=== PATIENT | male | born 1965 | race African-American/Black ===

== ENCOUNTER 2016-11-16 11:11 | Emergency (ER) | payer OTHER ==
[~2016-11-16] VITALS: Ht 172.7 cm; Wt 94.8 kg
--- NOTE | 2016-11-16 11:34 | ED GI/GU/ABDOMINAL COMPLAINT ---
History of Present Illness General Chief Complaint: Abdominal Pain/Flank Pain Stated Complaint: ABD PAIN Source: patient Exam Limitations: no limitations Vital Signs & Intake/Output Vital Signs & Intake/Output Vital Signs Date Time Temp Pulse Resp B/P B/P Pulse O2 O2 Flow FiO2 Mean Ox Delivery Rate 11/16 1316 98.5 75 20 178/86 96 Room Air 11/16 1113 98.5 88 18 188/98 96 Room Air Allergies Coded Allergies: NO KNOWN ALLERGIES (10/09/12) Reconcile Medications Amlodipine Besylate 5 MG TABLET 1 TAB PO DAILY HTN (Reported) Hydromorphone HCl (Dilaudid) 2 MG TABLET 1 TAB PO BIDP PRN pain Oxycodone HCl/Acetaminophen (Oxycodone-Acetaminophen 5-325) 5 MG-325 MG TABLET 1 TAB PO 4XDP PRN PAIN (Reported) Tamsulosin HCl 0.4 MG CAP.ER.24H 1 CAP PO DAILY KIDNEY STONE (Reported) Triage Note: 51 Y/O MALE C/O PAIN "AROUND MY BELLY BUTTON" X 2 DAYS. STATES HE WAS EVAL'D AT [facility] YESTERDAY FOR SAME AND HAD NEGATIVE BLOODWORK, US AND CT SCAN. STATES HE WAS GIVEN PERCOCET PRESCRIPTION "AND TWO OTHER MEDICATIONS"; HAS BEEN TAKING SAME WITH NO RELIEF. DENIES N/V/D. DENIES FEVERS Triage Nurses Notes Reviewed? yes HPI: This patient is a 51-year-old male who presented to the emergency department today accompanied by his for violation of abdominal pain and right flank pain. The patient reported that his pain began yesterday while he was at work. He reported that the pain gets up to a 10 out of 10, sharp, and radiates across his abdomen to his right flank. Yesterday he was having pain primarily located around his umbilicus. He was brought to [facility] where he had a CT scan and ultrasound. He reports that they found a kidney stone. They do not know which side the stone was on or how big it was. They do not have the report from the initial CT scan. I sent him home with Percocet. The patient reported that this has not been helping. His reported that he was up all night. Constantly. He has not noticed any blood in the urine. He did report urinary burning. No vomiting, but positive nausea. No diarrhea or constipation. He denied any fevers, chills, chest pain, or difficulty breathing Past History Travel History Traveled to [place] past 21 day No Medical History Any Pertinent Medical History? 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 No Review of Systems Review of Systems Constitutional: Reports: no symptoms. EENTM: Reports: no symptoms. Respiratory: Reports: no symptoms. Cardiovascular: Reports: no symptoms. GI: Reports: see HPI. Genitourinary: Reports: see HPI. Musculoskeletal: Reports: see HPI. Skin: Reports: no symptoms. Neurological/Psychological: Reports: no symptoms. All Other Systems: Reviewed and Negative Physical Exam Physical Exam Gastrointestinal: normal bowel sounds, soft, no organomegaly, tenderness to palpation in the right groin region and around the umbilicus. No McBurney's point tenderness. Negative Rovsing sign. Nondistended. No rebound or guarding Comments: Well-developed well-nourished person in mild distress HEENT: Normal EENT exam, moist mucous membranes Pupils equally round and reactive to light. Back: No midline tenderness. Right-sided CVA tenderness. Antalgic gait Cardiovascular: Regular rate and rhythm with no murmurs, rubs, or gallops Respiratory: Chest nontender. No respiratory distress. Breath sounds clear to auscultation bilaterally Extremity: Normal and equal pulses Neuro: Alert oriented x3, cranial nerves II through XII grossly intact. Skin: No appreciable rash on exposed skin, skin is warm and dry. Psych: Mood and affect is normal Core Measures ACS in differential dx? Yes Severe Sepsis Present: No Septic Shock Present: No Progress Differential Diagnosis: AAA, AMI, appendicitis, biliary colic, bowel obstruction , colon cancer, cholecystitis, diverticulitis, hepatitis, ischemic bowel, inflamm bowel dis, pancreatitis, PUD/GERD, perforated viscous, pyelonephritis, ureterolithiasis, UTI/pyelo Plan of Care: Orders Procedure Date/time Status CULTURE,URINE 11/16 1151 Active URINALYSIS 11/16 1151 Complete COMPREHENSIVE METABOLIC PANEL 11/16 1151 Complete CBC WITHOUT DIFFERENTIAL 11/16 1151 Complete Laboratory Tests 11/16/16 1206: Anion Gap 10, Estimated GFR 58 L, BUN/Creatinine Ratio 7.7, Glucose 138 H, Calcium 9.1, Total Bilirubin 0.8, AST 42, ALT 37, Alkaline Phosphatase 69, Total Protein 7.1, Albumin 4.0, Globulin 3.1, Albumin/Globulin Ratio 1.3, CBC w Diff MAN DIFF ORDERED, RBC 5.51, MCV 80.7, MCH 26.9 L, RDW 15.1 H, MPV 9.5, Gran % 84.2 H, Lymphocytes % 9.0 L, Monocytes % 6.3, Eosinophils % 0.1, Basophils % 0.4, Absolute Granulocytes 12.3 H, Absolute Lymphocytes 1.3, Absolute Monocytes 0.9 H, Absolute Eosinophils 0, Absolute Basophils 0.1, Platelet Estimate ADEQUATE, Normocytic RBCs VERIFIED, Normochromic RBCs VERIFIED, PUBS MCHC 33.3, Urine Color YEL, Urine Clarity HAZY H, Urine pH 6.0, Ur Specific [place] 1.020, Urine Protein NEG, Urine Ketones NEG, Urine Nitrite NEG, Urine Bilirubin NEG, Urine Urobilinogen 0.2, Ur Leukocyte Esterase NEG, Ur Microscopic SEDIMENT EXAMINED, Urine RBC PACKD H, Urine WBC RARE, Ur Epithelial Cells FEW, Urine Bacteria FEW H, Urine Hemoglobin LARGE H, Urine Glucose NEG Microbiology 11/16 1205 URINE ROUT: Urine Culture - RECD Diagnostic Imaging: Viewed by Me: CT Scan. Discussed w/RAD: CT Scan. Radiology Impression: PATIENT: JOLIE ARIAS PRESENT AGE: 51 PATIENT ACCOUNT NO: [id number] : 64 LOCATION: [facility] ORDERING PHYSICIAN: ATIF SIDDIQI PA-C SERVICE DATE: 11/16/16 EXAM TYPE: CAT - CT ABD & PELVIS W/O IV CONTRAS EXAMINATION: CT ABDOMEN AND PELVIS WITHOUT CONTRAST CLINICAL INFORMATION: Evaluate for ureterolithiasis. Right flank pain. COMPARISON: None TECHNIQUE: Multidetector volumetric imaging was performed from the superior aspect of the liver through the pubic symphysis. Sagittal and coronal reformatted images were obtained on the technologist's workstation. DLP: 406 mGy-cm. FINDINGS: LUNG BASES: The visualized lung bases are unremarkable. LIVER, GALLBLADDER, AND BILIARY TREE: The liver is normal in size, shape, and attenuation. No focal hepatic lesion or biliary ductal dilatation is present. The gallbladder is unremarkable with no evidence of radiopaque gallstones, gallbladder wall thickening, or obvious pericholecystic inflammatory changes. PANCREAS: Unremarkable. SPLEEN: Unremarkable. ADRENAL GLANDS: Unremarkable. KIDNEYS AND URETERS: There is mild dilatation of the right collecting system. There is perinephric and periureteral stranding surrounding the right kidney and right ureter. There is a 2 mm calcification in the distal right ureter having the appearance of a distal ureteral calculus. No additional urinary tract calculi identified. The right kidney is otherwise unremarkable without additional stones or calcifications. The left collecting system in left kidney is normal. BLADDER: Unremarkable. GASTROINTESTINAL TRACT: Normal. ABDOMINAL WALL : No significant hernia is appreciated. LYMPH NODES: Normal. VASCULAR: Mild arterial calcification noted throughout. PELVIC VISCERA: Unremarkable. OSSEOUS STRUCTURES: Mild degenerative changes and bridging osteophytes about the sacroiliac joints indicative of mild arthrosis. Mild spondylosis of lumbar sacral spine. IMPRESSION: Right distal ureteral calculus resulting in mild\\E\\ partial obstruction of the right collecting system. Mild calcific atherosclerotic disease. Degenerative changes in sacroiliac joints and lumbar sacral spine. DICTATED BY: KENN MONTEJO MD DATE/TIME DICTATED:11/16/161312 ANTHROPOLOGY PROFESSOR:MANDY DATE/TIME TRANSCRIBED:11/16/161312 CONFIDENTIAL, DO NOT COPY WITHOUT APPROPRIATE AUTHORIZATION. <Electronically signed in Other Vendor System> SIGNED BY: KENN MONTEJO MD 11/16/16 7465 Initial ED EKG: none Comments: 11/16/2016 2:00:13 PM: I spoke to on-call urologist, Dr. Lopez. He reported that there is a very high likelihood that this 2 mm kidney stone now passed on its own. He is suggesting sending this patient home with a few tablets of Dilaudid in to instruct the patient to continue with the Flomax. Departure Departure Disposition: HOME OR SELF CARE Condition: Stable Clinical Impression Primary Impression: Ureterolithiasis Referrals: SU SNYDER MD PATIENT HAS NO PRIMARY CARE DR (PCP/Family) Additional Instructions: Take medication for pain as prescribed. Continue to take previously prescribed Flomax as directed. Return for new worsening symptoms or concerns. Please follow-up with the urologist whose information has been provided to you in this packet. Departure Forms: Customer Survey General Discharge Information Prescriptions: Current Visit Scripts Hydromorphone HCl (Dilaudid) 1 TAB PO BIDP PRN pain #10 TAB
[2016-11-16 12:27] LABS: ABSOLUTE BASOPHIL COUNT 0.1 /CUMM (0.0-0.2); ABSOLUTE EOSINOPHIL COUNT 0 /CUMM (0.0-0.7); ABSOLUTE GRANULOCYTE CT 12.3 /CUMM (1.4-6.5); ABSOLUTE LYMPH COUNT 1.3 /CUMM (1.2-3.4); ABSOLUTE MONOCYTE COUNT 0.9 /CUMM (0.10-0.60); BASOPHIL % 0.4 % (0.0-2.0); EOSINOPHIL % 0.1 % (0-5); GRANULOCYTE % 84.2 % (42.2-75.2); HEMATOCRIT 44.5 % (42-52); MEAN CORPUSCULAR HGB 26.9 PG (27.0-31.0); MEAN CORPUSCULAR HGB CONC 33.3 G/DL (33.0-37.0); MEAN CORPUSCULAR VOLUME 80.7 FL (80.0-94.0); MEAN PLATELET VOLUME 9.5 FL (7.4-10.4); PLATELET COUNT 186 /CUMM (130-400); RBC DISTRIBUTION WIDTH 15.1 % (11.5-14.5); RED BLOOD CELL CT 5.51 /CUMM (4.70-6.10); WHITE BLOOD CELL COUNT 14.7 /CUMM (4.8-10.8)
[2016-11-16] MEDS ORDERED: OXYCODONE-ACET1 EACH PO (12:55)
[2016-11-16] MEDS ORDERED: AMLODIPINE BESYL5 M1 PO (12:55)
[2016-11-16] MEDS ORDERED: TAMSULOSIN HCL0.4 M1 PO (12:55)
--- NOTE | 2016-11-16 13:35 | CT SCAN REPORT ---
EXAMINATION: CT ABDOMEN AND PELVIS WITHOUT CONTRAST CLINICAL INFORMATION: Evaluate for ureterolithiasis. Right flank pain. COMPARISON: None TECHNIQUE: Multidetector volumetric imaging was performed from the superior aspect of the liver through the pubic symphysis. Sagittal and coronal reformatted images were obtained on the technologist's workstation. DLP: 406 mGy-cm. FINDINGS: LUNG BASES: The visualized lung bases are unremarkable. LIVER, GALLBLADDER, AND BILIARY TREE: The liver is normal in size, shape, and attenuation. No focal hepatic lesion or biliary ductal dilatation is present. The gallbladder is unremarkable with no evidence of radiopaque gallstones, gallbladder wall thickening, or obvious pericholecystic inflammatory changes. PANCREAS: Unremarkable. SPLEEN: Unremarkable. ADRENAL GLANDS: Unremarkable. KIDNEYS AND URETERS: There is mild dilatation of the right collecting system. There is perinephric and periureteral stranding surrounding the right kidney and right ureter. There is a 2 mm calcification in the distal right ureter having the appearance of a distal ureteral calculus. No additional urinary tract calculi identified. The right kidney is otherwise unremarkable without additional stones or calcifications. The left collecting system in left kidney is normal. BLADDER: Unremarkable. GASTROINTESTINAL TRACT: Normal. ABDOMINAL WALL: No significant hernia is appreciated. LYMPH NODES: Normal. VASCULAR: Mild arterial calcification noted throughout. PELVIC VISCERA: Unremarkable. OSSEOUS STRUCTURES: Mild degenerative changes and bridging osteophytes about the sacroiliac joints indicative of mild arthrosis. Mild spondylosis of lumbar sacral spine. IMPRESSION: Right distal ureteral calculus resulting in mild\E\partial obstruction of the right collecting system. Mild calcific atherosclerotic disease. Degenerative changes in sacroiliac joints and lumbar sacral spine.
[2016-11-16] MEDS ORDERED: DILAUDID2 M1 PO (14:05)
[2016-11-16 14:14] VITALS: BP 142/64
== END 2016-11-16 14:15 ==
LOC: ERH 11:11
PROVIDERS: Physician Assistant
DX: N20.1 Calculus of ureter (principal)
CPT/HCPCS: 74176; 81001; 87086; 96361; 96374; 96375; J1885

== ENCOUNTER 2016-12-08 17:39 | Emergency (ER) | payer OTHER ==
[~2016-12-08] VITALS: Ht 175.3 cm; Wt 99.3 kg
[~2016-12-08 17:39] MED LIST: AMLODIPINE BESYL5 M1 PO; DILAUDID2 M1 PO; OXYCODONE-ACET1 EACH PO; TAMSULOSIN HCL0.4 M1 PO
--- NOTE | 2016-12-08 19:47 | ED CARDIAC/CP/PALPITATIONS ---
History of Present Illness General Chief Complaint: Chest Pain Stated Complaint: CP PAIN Source: patient Exam Limitations: no limitations Vital Signs & Intake/Output Vital Signs & Intake/Output Vital Signs Date Time Temp Pulse Resp B/P B/P Pulse O2 O2 Flow FiO2 Mean Ox Delivery Rate 12/08 2351 62 18 128/86 98 12/08 2304 96.5 59 16 136/83 97 Room Air 12/087 58 16 149/89 99 Room Air 12/08 2020 96.9 69 16 115/78 96 Room Air 12/08 1821 98.9 77 16 127/80 97 Room Air Allergies Coded Allergies: shellfish derived (Severe, ANAPHYLAXIS 12/01/16) Reconcile Medications Amlodipine Besylate 10 MG TABLET 1 TAB PO DAILY BP (Reported) Hydromorphone HCl (Dilaudid) 2 MG TABLET 1 TAB PO BIDP PRN pain Ibuprofen 800 MG TABLET 1 TAB PO TID PRN pain Triage Note: PT C/O CHEST PAIN SINCE YESTERDAY. PT STATES HE WAS RELAXING WHEN HE BEGAN TO HAVE CHEST PAIN. PT REPORTS FEELING SOB AND DIAPHORETIC. PT STATES HE DID HAVE SWELLING BENEATH HIS LEFT ARM FLANK AREA. Triage Nurses Notes Reviewed? yes Onset: Gradual Duration: week(s): Timing: recent history Quality/Severity: moderate Location: left sided rib cage Radiation: no radiation Activities at Onset: none Aspirin Today: no aspirin today Associated Symptoms: left sided rib cage pain HPI: 51 yo gentleman recently diagnosed with a kidney stone (11/16) and hypertension, hyperlipidemia, presents with left sided rib cage pain x 2 weeks. His discomfort does not radiate. He has no diaphoresis, dizziness, syncopal type symptoms. He is otherwise well. Past History Travel History Traveled to [place] past 21 day No Medical History Any Pertinent Medical History? 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 No Review of Systems Review of Systems Constitutional: Reports: no symptoms. EENTM: Reports: no symptoms. Respiratory: Reports: no symptoms. Cardiovascular: Reports: no symptoms. GI: Reports: no symptoms. Genitourinary: Reports: no symptoms. Musculoskeletal: Reports: no symptoms. Skin: Reports: no symptoms. Neurological/Psychological: Reports: no symptoms. Hematologic/Endocrine: Reports: no symptoms. Immunologic/Allergic: Reports: no symptoms. All Other Systems: Reviewed and Negative Physical Exam Physical Exam General Appearance: well developed/nourished, no apparent distress Head: atraumatic, normal appearance Eyes: Bilateral: normal appearance. Ears, Nose, Throat: normal pharynx, normal ENT inspection Neck: normal inspection, supple, full range of motion Respiratory: normal breath sounds, left sided focal chest wall tenderness to palation Cardiovascular: regular rate/rhythm Gastrointestinal: normal bowel sounds, soft, non-tender, no organomegaly Back: normal inspection, normal range of motion Extremities: normal inspection, normal capillary refill, normal range of motion, no edema Neurologic/Psych: no motor/sensory deficits, awake, alert, oriented x 3 Skin: intact, normal color, warm/dry Core Measures ACS in differential dx? No Severe Sepsis Present: No Septic Shock Present: No Progress Differential Diagnosis: AMI, unstable angina, costochondritis vs other. Plan of Care: Orders Procedure Date/time Status TROPONIN LEVEL 12/08 2300 Complete EKG 12/08 2300 Active TROPONIN LEVEL 12/08 190 Complete D-DIMER 12/08 190 Complete COMPREHENSIVE METABOLIC PANEL 12/09 1903 Complete CBC WITHOUT DIFFERENTIAL 12/09 1903 Complete EKG 12/08 1740 Active Laboratory Tests 12/08/16 2248: Troponin I < 0.01 12/08/161952: Anion Gap 12, Estimated GFR > 60, BUN/Creatinine Ratio 10.0, Glucose 78, Calcium 9.7, Total Bilirubin 0.5, AST 26, ALT 46, Alkaline Phosphatase 67, Troponin I < 0.01, Total Protein 8.0, Albumin 4.6, Globulin 3.4, Albumin/Globulin Ratio 1.4, D-Dimer < 200, CBC w Diff NO MAN DIFF REQ, RBC 5.39, MCV 81.8, MCH 27.1, RDW 14.6 H, MPV 9.6, Gran % 61.6, Lymphocytes % 31.5, Monocytes % 5.6, Eosinophils % 1.0, Basophils % 0.3, Absolute Granulocytes 7.0 H, Absolute Lymphocytes 3.6 H, Absolute Monocytes 0.6, Absolute Eosinophils 0.1, Absolute Basophils 0, PUBS MCHC 33.2 Diagnostic Imaging: Viewed by Me: Radiology Read. Discussed w/RAD: Radiology Read. CXR Impression: no acute abnormality, no infiltrates, normal size heart, normal mediastinum Initial ED EKG: normal axis, normal intervals, normal p-waves, normal QRS complex, normal sinus rhythm Repeat EKG: unchanged Comments: PATIENT: JOLIE ARIAS PRESENT AGE: 51 PATIENT ACCOUNT NO: [id number] : 63 LOCATION: [facility] ORDERING PHYSICIAN: STEPHANIE RASHID MD SERVICE DATE: 12/08/16 EXAM TYPE: RAD - XRY-PORTABLE CHEST XRAY EXAMINATION: CHEST 1 VIEW CLINICAL INFORMATION: Chest pain. COMPARISON: None. TECHNIQUE: An AP view of the chest is provided. FINDINGS: The cardiac silhouette is not enlarged. The mediastinal and hilar contours are unremarkable. There are neither pleural effusions nor pneumothoraces. There are no consolidations. The osseous structures are unremarkable. IMPRESSION: No evidence for acute disease. DICTATED BY: KENN CASTANO MD DATE/TIME DICTATED:12/08/162036 SECURITY TEST ENGINEER:MANDY DATE/TIME TRANSCRIBED:12/08/162036 CONFIDENTIAL, DO NOT COPY WITHOUT APPROPRIATE AUTHORIZATION. <Electronically signed in Other Vendor System> SIGNED BY: KENN CASTANO MD 12/08/162040 Departure Departure Disposition: HOME OR SELF CARE Condition: Stable Clinical Impression Primary Impression: Chest pain Referrals: UNKNOWN (PCP/Family) Departure Forms: Customer Survey General Discharge Information Prescriptions: Current Visit Scripts Ibuprofen 1 TAB PO TID PRN pain #30 TAB Comments 12/08/16, 23:45.... trop neg x 2, ekg benign x 2... pt feels better after ibuprofen... pt safe for discharge... pt referred to cards for further evaluation. Critical Care Note Critical Care Note Critical Care Time: non-applicable
[2016-12-08] MEDS ORDERED: AMLODIPINE BESY10 M1 PO (20:20)
[2016-12-08 20:24] LABS: ABSOLUTE BASOPHIL COUNT 0 /CUMM (0.0-0.2); ABSOLUTE EOSINOPHIL COUNT 0.1 /CUMM (0.0-0.7); ABSOLUTE LYMPH COUNT 3.6 /CUMM (1.2-3.4); ABSOLUTE MONOCYTE COUNT 0.6 /CUMM (0.10-0.60); BASOPHIL % 0.3 % (0.0-2.0); GRANULOCYTE % 61.6 % (42.2-75.2); HEMATOCRIT 44.1 % (42-52); MEAN CORPUSCULAR HGB 27.1 PG (27.0-31.0); MEAN CORPUSCULAR HGB CONC 33.2 G/DL (33.0-37.0); MEAN CORPUSCULAR VOLUME 81.8 FL (80.0-94.0); MEAN PLATELET VOLUME 9.6 FL (7.4-10.4); PLATELET COUNT 230 /CUMM (130-400); RBC DISTRIBUTION WIDTH 14.6 % (11.5-14.5); RED BLOOD CELL CT 5.39 /CUMM (4.70-6.10); WHITE BLOOD CELL COUNT 11.3 /CUMM (4.8-10.8)
--- NOTE | 2016-12-08 20:41 | RADIOLOGY REPORT ---
EXAMINATION: CHEST 1 VIEW CLINICAL INFORMATION: Chest pain. COMPARISON: None. TECHNIQUE: An AP view of the chest is provided. FINDINGS: The cardiac silhouette is not enlarged. The mediastinal and hilar contours are unremarkable. There are neither pleural effusions nor pneumothoraces. There are no consolidations. The osseous structures are unremarkable. IMPRESSION: No evidence for acute disease.
[2016-12-08] MEDS ORDERED: IBUPROFEN800 M1 PO (23:36)
[2016-12-08 23:51] VITALS: BP 128/86
== END 2016-12-08 23:53 ==
LOC: ERH 17:39
PROVIDERS: Pediatrics
DX: R07.9 Chest pain, unspecified (principal)
CPT/HCPCS: 93005; 93010